=== PATIENT | female | born 1995 | race Caucasian/White ===

== ENCOUNTER 2018-04-01 03:09 | Inpatient (IN) ==
[~2018-04-01 03:09] MED LIST: *HR* Nalbuphine 10 MG/ML AMPUL IVP PRN; Famotidine 20 MG/2 ML VIAL IVP PRN; Metoclopramide 10 MG/2 ML VIAL IVP PRN; Naloxone 0.4 MG/ML INJ IVP PRN; Ondansetron 4 MG/2 ML VIAL IVP PRN
[2018-04-01] MEDS ORDERED: Ringers Solution, Lactated 1,000 ML IVC SCH (03:15)
--- NOTE | 2018-04-01 03:31 | OB/GYN History & Physical ---
Date of Encounter: 04/01/18 Time of Encounter: 03:11 Assessment and Plan (1) 40 weeks gestation of Current visit: Yes Status: Acute (2) Spontaneous onset of labor Current visit: Yes Status: Acute admit to labor and delivery intermittent monitoring saline lock IV will place cervical fofana Nubain and epidural as desired Anticipate (3) Large for gestational age fetus Current visit: Yes Status: Acute History of Present Illness Chief complaint: contractions HPI: Ms. Bolaños is a 22 year old female 40+5 weeks gestation presents to triage with complaints of contractions that have been occurring off and on all day. care with Dr. Spears, complicated by elevated AFP ( normal progenity), circumvallte placenta, LGA measuring 9lbs 8oz 98.4% Labs: A-, Rubella immune, Varicella immune, GBS negative, all other serologies negative. Past Med Surg Social Fam HX - Past Medical History Medical history: no medical history Psychiatric history: no psych history - Past Surgical History Surgical History: other (knee surgery; tonsillectomy, wrist surgery) Additional surgical history: knee surgery, wrist surgery, lymph node removal in neck,T&A,dental surgery- itchiness with morphine - Social History Smoking Status: Never smoker Smokeless Tobacco Status: No Alcohol use: none Drug use: none - Family History Mother Living Status: Still Living Hx Family Medical Disorders: No Father Living Status: Still Living Hx Family Medical Disorders: No Obstetrical History - Pregnancies : 1 Para: 0 Term: 0 : 0 Ab's: 0 Livin Medications and Allergies Tablet 04/01/18 [History] Probiotic 04/01/18 [History] 3 Allergy/AdvReac Type Severity Reaction Status Date / Time No Known Allergies Allergy Verified 04/01/18 01:36 Exam - Constitutional Constitutional: well developed, well nourished, no acute distress, average body habitus - Neck Neck exam: full ROM - Lungs Respiratory exam: CTAB - Cardiovascular Cardiovascular exam: RRR - Abdomen Abdomen: Present: gravid, non tender - Extremities Extremities exam: normal capillary refill, normal inspection - Vagina Vagina: Present: normal moisture - Cervix Dilation: 2 Effacement: 90 Station: -2 Results All other labs normal. - VTE Reasons for not Prescribing Prophylaxis: Treatment not Indicated - Low risk for VTE
[2018-04-01 03:34] LABS: Basophils % 0.2 %; Eosinophils # 0.2 K/mcL (0.0-0.6); Eosinophils % 1.4 %; Hematocrit 29.7 % (35.3-44.9); Hemoglobin 9.6 g/dL (11.5-15.4); Immature Granulocytes % 0.4 % (0-4); Lymphocytes # 1.5 K/mcL (0.6-4.6); Lymphocytes % 13.5 %; Mean Corpuscular HGB Conc 32.3 g/dL (31.6-35.5); Mean Corpuscular Hemoglobin 25.2 pg (28.0-33.3); Mean Platelet Volume 10.7 fL (9.4-12.4); Monocytes # 0.7 K/mcL (0.0-1.3); Monocytes % 6.2 %; Neutrophils # 8.5 K/mcL (1.6-8.9); Platelet Count 197 K/mcL (140-400); Red Blood Count 3.81 M/mcL (3.82-4.97); Red Cell Distribution Width 14.7 % (11.5-14.5); Segmented Neutrophils % 78.3 %
[2018-04-01 05:54] LABS: Amphetamine Screen,Urine Negative ng/mL (Cutoff=1000); Barbiturate Screen,Urine Negative ng/mL (Cutoff=200); Benzodiazepines Screen,Urine Negative ng/mL (Cutoff=200); Cannabinoid Screen,Urine Negative ng/mL (Cutoff = 50); Cocaine Screen,Urine Negative ng/mL (Cutoff= 300); Opiate Screen,Urine Negative ng/mL (Cutoff=300)
--- NOTE | 2018-04-01 08:23 | OB Labor Progress Note ---
Date of Encounter: 04/01/18 Time of Encounter: 08:21 Labor Progress Note - Subjective Subjective: Pt feeling more uncomfortable with contractions. Rates them 04/23. - Cervix Cervix: 5/80/-2 - Heart Tones Heart Tones: IA - 120's/+accelerations/-decelerations - [place]: Pt reports contractions about every 2 minutes - Interventions Interventions: SVE - Plan Plan: Continue expectant management IA May have epidural or nubain upon request May use tub for pain relief Anticipate Dr. Jensen aware of POC and agrees
--- NOTE | 2018-04-01 09:52 | Anesthesia Evaluation PreOp ---
Date of Encounter: 04/01/18 Time of Encounter: 09:50 - Past History Planned Operation: YUKI Cardiac History: Denies any Significant Hx Pulmonary History: Denies Any Significant HX LATENT FINGERPRINT EXAMINER History: Denies Any Significant HX Other Medical History: Denies Any Significant HX Anesthesia History: No Prior Anesthetic Complications, Past Anesthesia (Right knee ligament repair, ganglion cyst excision, teeth synagogue) Alcohol Use: none Drug use: none Medications and Allergies Tablet 04/01/18 [History] Probiotic 04/01/18 [History] 3 Allergy/AdvReac Type Severity Reaction Status Date / Time No Known Allergies Allergy Verified 04/01/18 01:36 - Meds/Allergy Pre-op Review Medications Reviewed: Yes Allergies Reviewed: Yes Beta Blockers on Current Med List: No Anesthesia Results - Labs 04/01/18 03:20 Anesthesia Exam BP 132/71 P 80 R 18 T 97.8 Height: 5'5" Weight: 73.1kg NPO (# of Hours): 2 Pain Scale: 5 Pain Scale Used: Numeric (1 - 10) - HEENT Pupil (Motor): Pupils equal Mallampati: II Teeth: Normal Oral Opening: Greater than 3 - LATENT FINGERPRINT EXAMINER LOC: Oriented LATENT FINGERPRINT EXAMINER Motor: Normal RUE, Normal LUE, Normal RLE, Normal LLE, Normal Face LATENT FINGERPRINT EXAMINER Sensory: Normal: RUE, LUE, RLE, LLE, Face - Cardiac Rhythm: Regular Murmur: None JVD: No Carotid Bruit: No - Pulmonary Breath Sounds: bilateral Clear Respiratory Effort: Symmetrical Anesthesia Assess/Plan ASA Score: 2 Modified Karyn Scale for Level of Consciousness: Cooperative, oriented, and tranquil Anesthetic Plan: Regional Autologous Blood: Yes Monitoring Plan: Standard Monitors Recovery Plan: Other
--- NOTE | 2018-04-01 11:56 | OB Labor Progress Note ---
Date of Encounter: 04/01/18 Time of Encounter: 11:45 Labor Progress Note - Subjective Subjective: Patient reports more discomfort with contractions. - Cervix Cervix: 5-6/80/0 - Heart Tones Heart Tones: IA - 130's/+accelerations/-decelerations - [place]: Reports contractions have spaced out - now about every 5-7 minutes - Interventions Interventions: SVE - Plan Plan: Continue expectant management Use heat as necessary Frequent position changes Nipple stimulation to increase contraction strength and timing Anticipate
[2018-04-01] MEDS ORDERED: Methylergonovine 0.2 MG/ML AMPUL IM ONE (13:16)
--- NOTE | 2018-04-01 15:22 | OB Labor Progress Note ---
Date of Encounter: 04/01/18 Time of Encounter: 15:20 Labor Progress Note - Subjective Subjective: Patient reports slight discomfort with contractions. States she feels they are [id number] - Cervix Cervix: 6/90/0 to +1 - Heart Tones Heart Tones: Intermittent auscultation- heart tones in the 130s/Positive accelerations/ no decelerations - [place]: Reports contractions are [id number] and palpate mild to moderate. [place] shows contractions every 6 minutes lasting 2 minutes each - Interventions Interventions: Options discussed with patient in crease frequency of contractions. She elects to try nipple stimulation for 1 hour. - Plan Plan: Continue expectant management Nipple stimulation instructions given Frequent position changes Anticipate
--- NOTE | 2018-04-01 21:04 | OB Labor Progress Note ---
Date of Encounter: 04/01/18 Time of Encounter: 21:02 Labor Progress Note - Subjective Subjective: Pt reports some discomfort with contractions. - Cervix Cervix: 6-7/90/0 - Heart Tones Heart Tones: Baseline 135 Moderate variability Accelerations present 15x15 No decelerations FHR Category I - [place]: Contractions every 4 minutes and palpate strong - Interventions Interventions: SVE AROM - thick meconium, large amount of fluid - Plan Plan: Continue expectant management May have Nubain or epidural upon request Frequent position changes Anticipate Dr. Jensen aware plan of care and agrees
[2018-04-01] MEDS ORDERED: EPHEDrine 50 MG/ML VIAL IVP PRN (22:14)
[2018-04-01] MEDS ORDERED: *HR* FentaNYL (PF) 100 MCG/2 ML VIAL EP ONE (22:14)
[2018-04-01] MEDS ORDERED: Naloxone 0.4 MG/ML INJ IVP PRN (22:14)
[2018-04-01] MEDS ORDERED: Ondansetron 4 MG/2 ML VIAL IVP PRN (22:14)
[2018-04-01] MEDS ORDERED: Bupivacaine-MPF 0.25% 10 ML VIAL EP ONE (22:14)
[2018-04-01] MEDS ORDERED: Epidural Premix (fent/bupiv) 110 ML EP SCH (22:15)
[2018-04-01] MEDS ORDERED: Lidocaine -MPF 1% 5 ML AMPUL ONE (22:16)
[2018-04-01] MEDS ORDERED: Epidural Premix (fent/bupiv) 110 ML EP ONE (22:17)
[2018-04-01] MEDS ORDERED: Bupivacaine-MPF 0.25% 10 ML VIAL ONE (22:27)
[2018-04-01] MEDS ORDERED: *HR* FentaNYL (PF) 100 MCG/2 ML VIAL ONE (22:27)
[2018-04-01] MEDS ORDERED: Oxytocin 20 units/ LR 1000 mL 20 UNIT/1,000 ML BAG IVC SCH (23:00)
--- NOTE | 2018-04-01 23:55 | OB Labor Progress Note ---
Date of Encounter: 04/01/18 Time of Encounter: 23:53 Labor Progress Note - Subjective Subjective: Patient now resting somewhat comfortably with epidural. - Heart Tones Heart Tones: Baseline 140 Moderate variability Accelerations present 15 x 15 No decelerations FHR category I - [place]: Contractions every 4-6 minutes and palpate moderate - Interventions Interventions: Start Pitocin - Plan Plan: Continue expectant management Frequent position changes with peanut ball Start Pitocin and titrated to adequate labor pattern Anticipate
--- NOTE | 2018-04-02 03:18 | OB Labor Progress Note ---
Date of Encounter: 04/02/18 Time of Encounter: 03:15 Labor Progress Note - Subjective Subjective: Patient comfortable and resting with epidural - Cervix Cervix: 7/100/+1 - Heart Tones Heart Tones: Baseline 130 Moderate variability Accelerations present 15 x 15 No decelerations FHR category I - [place]: Contractions every 2 minutes and palpate strong - Interventions Interventions: SVE Position change left with peanut ball - Plan Plan: Continue expectant management Frequent position changes with peanut ball Anticipate
--- NOTE | 2018-04-02 07:07 | OB/GYN Procedure Note ---
Delivery - Delivery Date: 04/02/18 Provider: Felicita Damico Intrapartum events: meconium, prolonged labor- > = 20hr Delivery induction: none Delivery augmentation: rupture of membranes, pitocin Delivery monitor: external FHT, external uterine Anesthesia: local, epidural Quantitated Blood Loss: 500 - Infant (s) Infant A Infant Delivery Date: 04/02/18 Delivery Time: 06:08 Presentation: vertex Position: MICHAEL Route of delivery: Gender: Male Viability: Viable Pounds: 10 Ounces: 5 Weight Gram: 4.68 kg at 1 minute: 8 at 5 mins: 8 Shoulder Dystocia: not encountered Specimens collected: cord blood Placenta: spontaneous Cord: nuchal cord, 3 umbilical vessels, nuchal reduced - Repair Episiotomy: none Laceration Description: Labial (bilateral - repaired) - Complications Delivery complications: hemorrhage Delivery comments: This is a 22-year-old G1 now P1 who presents admitted for spontaneous labor. She progressed with AROM and Pitocin augmentation to the second stage of labor. Dr. Jensen was called to bedside in anticipation of possible shoulder dystocia. Nursery and respiratory were also at bedside status post thick meconium at AROM. She pushed for about 40 minutes. She delivered a viable male infant, MICHAEL over an intact perineum. The infant was placed on the maternal abdomen where the mouth and nares were bulb suctioned. A nuchal cord 1 was identified. The nuchal cord was reduced prior to delivery of the shoulders and body. No shoulder dystocia was encountered. scores were 8 and 8. The weighed 10 lbs. 5 oz (4680g). The placenta delivered (Jaquez) spontaneously, intact, with a three-vessel cord. Inspection revealed bilateral labial lacerations. The lacerations were repaired with 3-[address] Jensen and myself. The uterus was atonic with active bleeding so 0.2 mg Methergine was given IM in the right thigh. The repair was done under epidural and local anesthesia. EBL was 500 mL. Placenta will be sent to pathology. Umbilical artery blood gases were not sent. There were no complications during the procedure. Mom and baby are nursing skin to skin following delivery. - Disposition Mom disposition: stable in LDR disposition: stable in LDR
[2018-04-02] MEDS ORDERED: Oxytocin 20 units/ LR 1000 mL 20 UNIT/1,000 ML BAG IVC SCH (09:42)
[2018-04-02] MEDS ORDERED: Acetaminophen 325 MG TABLET PO PRN (09:42)
[2018-04-02] MEDS ORDERED: *HR* HYDROcodone/Acet 5/325 mg TABLET PO PRN (09:42)
[2018-04-02] MEDS ORDERED: Rho Immune Globulin 1,500 UNIT SYRINGE IM PRN (09:42)
[2018-04-02] MEDS ORDERED: Benzocaine/Menthol 56 GM AEROSOL SPRAY TP PRN (09:42)
[2018-04-02] MEDS ORDERED: Prenatal Vit/FA 1 EACH TABLET PO SCH (09:42)
[2018-04-02] MEDS: Ibuprofen 600 MG TABLET PO PRN ×2 (10:59→20:27)
[2018-04-02 14:55] LABS: Basophils % 0.1 %; Eosinophils % 0.1 %; Hematocrit 25.5 % (35.3-44.9); Hemoglobin 8.4 g/dL (11.5-15.4); Immature Granulocytes % 0.5 % (0-4); Lymphocytes # 1.2 K/mcL (0.6-4.6); Lymphocytes % 7.3 %; Mean Corpuscular HGB Conc 32.9 g/dL (31.6-35.5); Mean Corpuscular Hemoglobin 25.7 pg (28.0-33.3); Monocytes # 0.9 K/mcL (0.0-1.3); Monocytes % 5.3 %; Platelet Count 160 K/mcL (140-400); Red Blood Count 3.27 M/mcL (3.82-4.97); Red Cell Distribution Width 14.9 % (11.5-14.5); Segmented Neutrophils % 86.7 %
[2018-04-02 18:06] LABS: Amphetamine Screen,Urine Negative ng/mL (Cutoff=1000); Barbiturate Screen,Urine Negative ng/mL (Cutoff=200); Benzodiazepines Screen,Urine Negative ng/mL (Cutoff=200); Cannabinoid Screen,Urine Negative ng/mL (Cutoff = 50); Cocaine Screen,Urine Negative ng/mL (Cutoff= 300); Opiate Screen,Urine Negative ng/mL (Cutoff=300)
--- NOTE | 2018-04-03 09:25 | Discharge Summary ---
Date of Encounter: 04/03/18 Time of Encounter: 09:22 - Discharge Diagnosis (1) Vaginal delivery Priority: Primary Status: Acute Comments: Pt meeting all milestones. She desires discharge home today. (2) Breast feeding status of mother Priority: Secondary Status: Acute Comments: Pt has breastpump. Good latch noted on exam this am. (3) anemia Priority: Secondary Status: Acute Comments: Pt denies s/sx anemia. Home on iron. - Discharge Medications Prescriptions: Ibuprofen [Motrin] 600 mg PO Q6HR PRN #30 tablet PRN Reason: Cramping Docusate [Colace] 100 mg PO BID #60 capsule Ferrous Sulfate 325 mg PO DAILY #30 tablet Home Medications: Tablet 1 tab PO DAILY 04/01/18 [History] Probiotic 1 tab PO DAILY 04/01/18 [History] Benzocaine/Menthol [place] [Dermoplast [place]] 1 appl TP QID PRN aerosol 04/03/18 [Rx] Docusate [Colace] 100 mg PO BID #60 capsule 04/03/18 [Rx] Ferrous Sulfate 325 mg PO DAILY #30 tablet 04/03/18 [Rx] Ibuprofen [Motrin] 600 mg PO Q6HR PRN #30 tablet 04/03/18 [Rx] Allergies/Adverse Reactions: 3 Allergy/AdvReac Type Severity Reaction Status Date / Time No Known Allergies Allergy Verified 04/01/18 01:36 Data Procedures and tests throughout hospitalization: Laboratory Tests 04/01/18 04/01/18 04/02/18 01:16 03:20 06:44 WBC 10.8 RBC 3.81 L Hgb 9.6 L Hct 29.7 L MCV 78.0 L MCH 25.2 L MCHC 32.3 RDW 14.7 H Plt Count 197 MPV 10.7 Immature Gran % 0.4 Seg Neutrophils % 78.3 Lymphocytes % 13.5 Monocytes % 6.2 Eosinophils % 1.4 Basophils % 0.2 Neutrophils # 8.5 Lymphocytes # 1.5 Monocytes # 0.7 Eosinophils # 0.2 Basophils # 0.0 Urine Opiates Screen Negative Ur Barbiturates Screen Negative Ur Phencyclidine Scrn Positive H Ur Amphetamines Screen Negative U Benzodiazepines Scrn Negative Urine Cocaine Screen Negative U Marijuana (THC) Screen Negative Baby's Blood Type A RH NEGATIVE Mother's Blood Type A RH NEGATIVE Rhogam Indicated NO 04/02/18 04/02/18 14:18 17:15 WBC 16.1 H RBC 3.27 L Hgb 8.4 L Hct 25.5 L MCV 78.0 L MCH 25.7 L MCHC 32.9 RDW 14.9 H Plt Count 160 MPV 11.0 Immature Gran % 0.5 Seg Neutrophils % 86.7 Lymphocytes % 7.3 Monocytes % 5.3 Eosinophils % 0.1 Basophils % 0.1 Neutrophils # 14.0 H Lymphocytes # 1.2 Monocytes # 0.9 Eosinophils # 0.0 Basophils # 0.0 Urine Opiates Screen Negative Ur Barbiturates Screen Negative Ur Phencyclidine Scrn Positive H Ur Amphetamines Screen Negative U Benzodiazepines Scrn Negative Urine Cocaine Screen Negative U Marijuana (THC) Screen Negative Baby's Blood Type Mother's Blood Type Rhogam Indicated Labs on day of discharge: Labs from last 24 hours 04/02/18 04/02/18 04/02/18 17:15 14:18 06:44 WBC 16.1 H RBC 3.27 L Hgb 8.4 L Hct 25.5 L MCV 78.0 L MCH 25.7 L MCHC 32.9 RDW 14.9 H Plt Count 160 MPV 11.0 Immature Gran % 0.5 Seg Neutrophils % 86.7 Lymphocytes % 7.3 Monocytes % 5.3 Eosinophils % 0.1 Basophils % 0.1 Neutrophils # 14.0 H Lymphocytes # 1.2 Monocytes # 0.9 Eosinophils # 0.0 Basophils # 0.0 Urine Opiates Screen Negative Ur Barbiturates Screen Negative Ur Phencyclidine Scrn Positive H Ur Amphetamines Screen Negative U Benzodiazepines Scrn Negative Urine Cocaine Screen Negative U Marijuana (THC) Screen Negative Baby's Blood Type A RH NEGATIVE Mother's Blood Type A RH NEGATIVE Rhogam Indicated NO Date of admission: 04/01/18 03:09 Primary care physician: Judi Yo CNP Consults: 04/02/18 09:42 Consult to Commercial Title Examiner [CONS] Routine Comment: Vaginal delivery, consult needed 04/02/18 10:36 Consult to Revenue Audit Clerk (W&C) [CONS] Routine Reason For Exam: Reason for SW Consult: uds positive for phenylcyclidine Discharging clinician: Catina Chauhan Anticipated date of discharge: 04/03/18 - Patient Status Disposition: Home, Self-Care Condition: Good Functional capacity at discharge: independent ambulation Overall status at discharge: patient is progressing back to baseline - Discharge Instructions Follow Up With: Judi Yo CNP [Primary Care Provider] - Felicita Damico [Advanced Practice Nurse] - - Diet and Activity Activity: increase activity as tolerated Diet: regular diet Hospital Course Reason for admission: active labor Delivery: Episiotomy: none Laceration: other (bilateral labial) Other procedures: none complications: none Discharge diagnosis: IUP at term delivered baby: male Hospital course: - Delivery Date: 04/02/18 Provider: Felicita Damico Intrapartum events: meconium, prolonged labor- > = 20hr Delivery induction: none Delivery augmentation: rupture of membranes, pitocin Delivery monitor: external FHT, external uterine Anesthesia: local, epidural Quantitated Blood Loss: 500 - Infant (s) Infant A Delivery Date: 04/02/18 Delivery Time: 06:08 Presentation: vertex Position: MICHAEL Route of delivery: Gender: Male Viability: Viable Pounds: 10 Ounces: 5 Weight Gram: 4.68 kg at 1 minute: 8 at 5 mins: 8 Shoulder Dystocia: not encountered Specimens collected: cord blood Placenta: spontaneous Cord: nuchal cord, 3 umbilical vessels, nuchal reduced - Repair Episiotomy: none Laceration Description: Labial (bilateral - repaired) - Complications Delivery complications: hemorrhage - Disposition Mom disposition: home PPD#1 disposition: home with mother, Time Attestation: Total time spent providing and/or coordinating discharge services: Time Spent: Less than 30 minutes Exam - Constitutional Vitals: Temp Pulse Resp BP Pulse Ox 98.1 F 78 14 130/88 99 04/02/18 20:30 04/02/18 20:30 04/02/18 20:30 04/02/18 20:30 04/02/18 20:30 General appearance IM: A&O X 3 - Respiratory Respiratory exam: Present: CTAB - Cardiovascular Cardiovascular exam IM: Present: RRR - GI/Abdominal GI/Abdominal exam IM: soft - Uterine Tone: Firm Uterus Position: At Umbilicus, Right of Midline - Extremities Exam Extremities exam IM: Present: normal inspection (mild edema of feet bilaterally) - Neurological Exam Neurological exam: normal gait, oriented X3 - Psychiatric Additional comments: tired but otherwise good mood
[2018-04-03 10:14] VITALS: BP 118/74
[2018-04-03 18:39] LABS: Phencyclidine Screen,Urine Negative ng/mL (Cutoff=25)
[2018-04-05 11:33] LABS: Phencyclidine Screen,Urine Corrected Result ng/mL (Cutoff=25)
== END 2018-04-03 11:28 | disposition home or self-care (01) | DRG 774 ==
LOC: 1NENULAB → 1NENUOBS 04-02 09:34
PROVIDERS: ADMIT Advanced Practice Midwife; ATTEND Advanced Practice Midwife

== ENCOUNTER 2021-03-01 04:29 | Inpatient (IN) ==
[2021-03-01] MEDS ORDERED: miSOPROStoL 25 MCG TABLET PO ONE (04:32)
[2021-03-01] MEDS ORDERED: Metoclopramide 10 MG/2 ML VIAL IVP PRN (04:33)
[2021-03-01] MEDS ORDERED: Famotidine 20 MG/2 ML VIAL IVP PRN (04:33)
[2021-03-01] MEDS ORDERED: Naloxone 0.4 MG/ML INJ IVP PRN (04:33)
[2021-03-01] MEDS ORDERED: Ondansetron 4 MG/2 ML VIAL IVP PRN (04:33)
[2021-03-01] MEDS ORDERED: Lidocaine 1% 20 ML MDV INFILT PRN (04:33)
[2021-03-01] MEDS ORDERED: *HR* Nalbuphine 10 MG/ML AMPUL IV PRN (04:33)
[2021-03-01] MEDS ORDERED: Ringers Solution, Lactated 1,000 ML IVC SCH (04:45)
[2021-03-01 05:14] LABS: Basophils % 0.4 %; Eosinophils # 0.3 K/mcL (0.0-0.6); Eosinophils % 3.7 %; Hematocrit 33.3 % (35.3-44.9); Hemoglobin 10.8 g/dL (11.5-15.4); Immature Granulocytes % 0.4 % (0-4); Lymphocytes # 1.3 K/mcL (0.6-4.6); Lymphocytes % 17.3 %; Mean Corpuscular HGB Conc 32.4 g/dL (31.6-35.5); Mean Corpuscular Hemoglobin 27.6 pg (28.0-33.3); Mean Corpuscular Volume 85.2 fL (83.0-100.0); Mean Platelet Volume 10.1 fL (9.4-12.4); Monocytes # 0.6 K/mcL (0.0-1.3); Monocytes % 7.2 %; Neutrophils # 5.4 K/mcL (1.6-8.9); Platelet Count 199 K/mcL (140-400); Red Blood Count 3.91 M/mcL (3.82-4.97); Red Cell Distribution Width 14.1 % (11.5-14.5); White Blood Count 7.6 K/mcL (4.3-11.1)
[2021-03-01 05:25] LABS: Amphetamine Screen,Urine Negative ng/mL (Cutoff=1000); Barbiturate Screen,Urine Negative ng/mL (Cutoff=200); Benzodiazepines Screen,Urine Negative ng/mL (Cutoff=200); Cannabinoid Screen,Urine Negative ng/mL (Cutoff = 50); Cocaine Screen,Urine Negative ng/mL (Cutoff= 300); Opiate Screen,Urine Negative ng/mL (Cutoff=300); Phencyclidine Screen,Urine Negative ng/mL (Cutoff=25)
[2021-03-01 06:18] LABS: Adenovirus Not Detected (Not Detect); Bordetella Pertussis Not Detected (Not Detect); Chlamydophila pneumoniae Not Detected (Not Detect); Coronavirus 229E Not Detected (Not Detect); Coronavirus HKU1 Not Detected (Not Detect); Coronavirus NL63 Not Detected (Not Detect); Coronavirus OC43 Not Detected (Not Detect); Human Metapneumovirus Not Detected (Not Detect); Human Rhinovirus/Enterovirus Not Detected (Not Detect); Influenza A Subtype 2009 H1 Not Detected (Not Detect); Influenza B Not Detected (Not Detect); Mycoplasma pneumoniae Not Detected (Not Detect); Parainfluenza Virus 1 Not Detected (Not Detect); Parainfluenza Virus 2 Not Detected (Not Detect); Parainfluenza Virus 3 Not Detected (Not Detect); Parainfluenza Virus 4 Not Detected (Not Detect); Respiratory Syncytial Virus Not Detected (Not Detect); SARS-CoV-2 Not Detected (Not Detect)
[2021-03-01] MEDS ORDERED: Penicillin G Potassium 5,000,000 UNIT in 0.9 % Sodium Chloride Mini Bag 100 ML IVPB ONE (10:06)
[2021-03-01] MEDS ORDERED: EPHEDrine 50 MG/ML VIAL IVP PRN (11:53)
[2021-03-01] MEDS ORDERED: Ropivacaine/PF 0.2% 20 ML VIAL EP ONE (11:53)
[2021-03-01] MEDS ORDERED: *HR* FentaNYL (PF) 100 MCG/2 ML VIAL EP ONE (11:53)
[2021-03-01] MEDS ORDERED: Epidural Premix (fent/bupiv) 110 ML EP SCH (12:00)
[2021-03-01] MEDS ORDERED: Penicillin G Potassium 2,500,000 UNIT/105 ML MLS IVPB SCH (16:00)
[2021-03-01] MEDS ORDERED: Oxytocin 20 units/ LR 1000 mL 20 UNIT/1,000 ML BAG IVC ONE (17:19)
[2021-03-01] MEDS ORDERED: D5% in Lactated Ringers 1,000 ML IVC SCH (18:00)
[2021-03-02] MEDS ORDERED: Oxytocin 20 units/ LR 1000 mL 20 UNIT/1,000 ML BAG IVC SCH (04:04)
[2021-03-02] MEDS ORDERED: Lanolin 7 G OINT...G. TP PRN (04:04)
[2021-03-02] MEDS ORDERED: *HR* HYDROcodone/Acet 5/325 mg TABLET PO PRN (04:04)
[2021-03-02] MEDS ORDERED: Acetaminophen 325 MG TABLET PO PRN (04:04)
[2021-03-02] MEDS ORDERED: Benzocaine/Menthol 56 GM AEROSOL SPRAY TP PRN (04:04)
[2021-03-02] MEDS ORDERED: Ibuprofen 600 MG TABLET PO PRN (04:04)
[2021-03-02 08:18] VITALS: BP 112/72
[2021-03-02] MEDS ORDERED: Prenatal Vit/FA 1 EACH TABLET PO SCH (09:00)
== END 2021-03-02 18:57 | disposition home or self-care (01) | DRG 807 ==
LOC: 1NENULAB 04:29 → 1NENUOBS 03-02 03:56
PROVIDERS: ADMIT Advanced Practice Midwife; ATTEND Advanced Practice Midwife